=== PATIENT | male | born 1975 | race Hispanic/Latino ===

== ENCOUNTER 2018-09-04 11:41 | Emergency (ER) | payer SELFPAY ==
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
[2018-09-04 14:03] VITALS: BP 142/68; PULSE 68; RESP 18; TEMP 97.8; O2SAT 96
--- NOTE | 2018-09-04 17:30 | CARD ---
APPROVED REPORT Date of service: 09/04/2018 EKG Measurement Heart [id number] <Conclusion> Normal sinus rhythm Possible Left atrial enlargement Borderline ECG
== END 2018-09-04 14:02 ==
LOC: H.ER 11:41
DX: F19.10 Other psychoactive substance abuse, uncomplicated (principal); V49.40XA Driver injured in collision with unspecified motor vehicles in traffic accident, initial encounter